=== PATIENT | female | born 1970 | race Caucasian/White ===

== ENCOUNTER 2023-05-16 23:30 | Emergency (ER) | payer BC ==
[~2023-05-16] VITALS: Ht 170.2 cm; Wt 63.6 kg
[2023-05-16 23:59] LABS: BASO # 0.07 K/mm3 (0.02-0.10); EOS # 0.29 K/mm3 (0.04-0.40); EOS % 4.5 % (1.0-5.0); HEMATOCRIT 44.5 % (37.0-47.0); HEMOGLOBIN 14.7 g/dL (12.5-16.0); MEAN CELL VOLUME 92 fl (78-100); MEAN CORPUSCULAR HEMOGLOBIN 30 pg (27-31); MEAN CORPUSCULAR HGB CONC 33 g/dL (33-37); MEAN PLATELET VOLUME 10.2 fl (7.4-10.4); MONO # 0.53 K/mm3 (0.20-0.80); NEU # 2.62 K/mm3 (1.40-6.50); PLATELET COUNT 217 K/mm3 (130-400); RED BLOOD COUNT 4.86 M/mm3 (4.10-5.30); RED CELL DISTRIBUTION WIDTH 12.7 % (11.5-14.5); WHITE BLOOD COUNT 6.5 K/mm3 (4.8-10.8)
[2023-05-17 00:06] LABS: ALBUMIN 4.8 g/dL (3.5-5.0)
[2023-05-17 00:07] LABS: SODIUM 141 mmol/L (136-145)
[2023-05-17 00:08] LABS: CALCIUM 9.9 mg/dL (8.3-10.5)
[2023-05-17] MEDS ORDERED: TENORMIN50 M1 PO (00:08)
[2023-05-17 00:09] LABS: GLUCOSE 96 mg/dL (65-105); TOTAL PROTEIN 8.5 g/dL (6.4-8.3)
[2023-05-17 00:10] LABS: CARBON DIOXIDE 22 mmol/L (22-29)
[2023-05-17 00:11] LABS: TOTAL BILIRUBIN 0.4 mg/dL (0.2-1.2)
[2023-05-17 00:14] LABS: AST-SGOT 70 U/L (5-34)
[2023-05-17 00:15] LABS: ALT/SGPT 125 U/L (0-55)
[2023-05-17 00:23] LABS: TROPONIN-I < 0.030 ng/mL (<0.030)
[2023-05-17 01:34] VITALS: BP 162/96
== END 2023-05-17 01:34 | disposition home or self-care (01) ==
LOC: ED 23:30
PROVIDERS: Physician Assistant
DX: I10 Essential (primary) hypertension (principal); R74.01 Elevation of levels of liver transaminase levels; Z86.16 Personal history of COVID-19